=== PATIENT | male | born 1960 | race African-American/Black ===

== ENCOUNTER 2025-02-01 14:56 | Inpatient (IN) | payer MEDICAID, OTHER ==
[~2025-02-01] VITALS: Ht 185.4 cm; Wt 108.9 kg
[~2025-02-01 14:56] MED LIST: ALBU18HF2 IH; APIX5TAB PO; BUME1TAB8 PO; DAPA10TA PO; DULA0.75 SQ; DULO60CA64 PO; FERR325T6 MT; HYDR-4009 PO; INSU100I32 SQ; LIP40 PO; METO-396 PO; PREG150C PO; ROSU20TA2 PO; SACU1TAB PO; TIZA-204 PO
[2025-02-01 14:59] VITALS: O2SAT 92
[2025-02-01] MEDS ORDERED: DEXTROSE 50% WATER 50ML SYRINGE IV ONE (15:10)
[2025-02-01] MEDS: SODIUM CHLORIDE 0.9% 1,000 ML IV ONE (15:24)
[2025-02-01] MEDS ORDERED: MORPHINE SULFATE/PF 1 MG/ML 100 MG in BAG 1 EACH IV PRN (15:30)
[2025-02-01] MEDS: MORPHINE SULFATE 4 MG/ML INJ (FOR IV/IM USE) IV ONE (15:39)
[2025-02-01] MEDS: DEXTROSE 50% WATER 50ML SYRINGE IV ONE (15:42)
[2025-02-01 16:02] LABS: BASOPHILS % 0.1 % (0.0-2.0); EOSINOPHILS % 0.6 % (0.0-5.0); HEMATOCRIT. 47.1 % (42.0-52.0); HEMOGLOBIN. 13.3 g/dL (14.0-18.0); LYMPHOCYTES % 7.8 % (20.0-50.0); MEAN PLATELET VOLUME 10.6 fl (7.4-10.4); MONOCYTES % 8.9 % (2.0-8.0); NEUTROPHILS % 82.6 % (40.0-76.0); PLATELET 292 x1000/uL (130-400); RED BLOOD CELL COUNT 5.70 mill/uL (4.7-6.1); RED CELL DISTRIBUTION WIDTH 25.8 % (11.6-14.6)
[2025-02-01] MEDS: MORPHINE (DRIP)100 MG in DEXT 5% WATER 100 ML IV PRN (16:07)
[2025-02-01 16:08] LABS: ADD RBC MORPHOLOGY YES
[2025-02-01 16:15] LABS: UREA NITROGEN BLOOD 47 mg/dL (9-23)
[2025-02-01 16:17] LABS: BILIRUBIN DIRECT 2.6 mg/dL (<=3.0); BILIRUBIN TOTAL 4.7 mg/dL (0.1-1.0); PROTEIN TOTAL 7.2 g/dL (6.0-8.3)
[2025-02-01 16:27] LABS: CREATININE 3.3 mg/dL (0.6-1.3); TROPONIN I HIGH SENSITIVITY 543 ng/L (3.0-53)
[2025-02-01 16:33] LABS: PLATELET ESTIMATE NORMAL
[2025-02-01] MEDS: GLYCOPYRROLATE 0.2MG/ML VIAL 5ML IV ONE (16:35)
[2025-02-01] MEDS: GLYCOPYRROLATE 0.2 MG/ML 2ML VIAL IV SCH (16:35)
[2025-02-01 17:56] LABS: ASPARTATE AMINOTRANSFERASE 2753 IU/L (<34)
[2025-02-01 20:00] VITALS: BP 107/48; PULSE 78; RESP 16; TEMP 36.2; O2SAT 95
[2025-02-01 23:21] VITALS: BP 107/48; PULSE 78; RESP 16; TEMP 36.1956
[2025-02-02] VITALS: BP_SYST 149; BP_SYST 99; BP_DIAS 59; BP_DIAS 69; PULSE 106; PULSE 75; RESP 16; RESP 20; TEMP 36.1; TEMP 36.3; O2SAT 95; O2SAT 97
== END 2025-02-02 09:47 | DRG 52 ==
LOC: ER 14:56 → 6EST 17:05 → EDBEDREQ 17:12 → EDBEDREQTM 17:12 → EDBEDREQSVC 18:24 → UNDOADMIN 18:28 → ER 18:28 → 8EST 18:28
PROVIDERS: ADMIT Student in an Organized Health Care Education/Training Program; ATTEND Student in an Organized Health Care Education/Training Program
DX: G92.8 Other toxic encephalopathy (principal); J96.00 Acute respiratory failure, unspecified whether with hypoxia or hypercapnia; E43 Unspecified severe protein-calorie malnutrition; I50.23 Acute on chronic systolic (congestive) heart failure; I48.0 Paroxysmal atrial fibrillation; Z79.01 Long term (current) use of anticoagulants; I47.20 Ventricular tachycardia, unspecified; N17.9 Acute kidney failure, unspecified; E11.22 Type 2 diabetes mellitus with diabetic chronic kidney disease; N18.32 Chronic kidney disease, stage 3b; J45.909 Unspecified asthma, uncomplicated; I13.0 Hypertensive heart and chronic kidney disease with heart failure and stage 1 through stage 4 chronic kidney disease, or unspecified chronic kidney disease; Z68.31 Body mass index [BMI] 31.0-31.9, adult; E87.20 Acidosis, unspecified; I21.A1 Myocardial infarction type 2; E87.5 Hyperkalemia; G89.29 Other chronic pain; I25.10 Atherosclerotic heart disease of native coronary artery without angina pectoris; M54.9 Dorsalgia, unspecified; Z51.5 Encounter for palliative care; Z66 Do not resuscitate; Z79.4 Long term (current) use of insulin; Z79.84 Long term (current) use of oral hypoglycemic drugs; Z79.85 Long-term (current) use of injectable non-insulin antidiabetic drugs; Z79.899 Other long term (current) drug therapy
CPT/HCPCS: 36415; 71045; 80048; 80076; 83605; 83735; 84145; 84484; 85025; 99285; A4606; J2270; J3490; J7030